=== PATIENT | female | born 1970 | race African-American/Black ===

== ENCOUNTER 2016-11-24 05:34 | Emergency (ER) | payer OTHER ==
[~2016-11-24] VITALS: Ht 185.4 cm; Wt 78.0 kg
[~2016-11-24 05:34] MED LIST: ALBUTEROL SULF8.5 GM IH; ANTIVERT25 MG PO; ASPIR-LOW81 MG PO; AUGMENTIN875 MG PO; BACLOFEN10 MG PO; BACTRIM,SEPT1 TABLET PO; BENTYL10 MG PO; FLEXERIL10 MG PO; HYDROCODON-ACE1 EAC7 PO; KEFLEX500 MG PO; LISINOPRIL-HCT1 EAC3 PO; LORTAB 5-325 M1 EACH PO; MOTRIN800 MG PO; NAPROSYN500 MG PO; OMEPRAZOLE40 M1 PO; PERCOCET 5/31 TABLET PO; PREDNISONE10 MG PO; PROAIR HFA8.5 GM IH; SKELAXIN400 M1 PO; ULTRAM50 MG PO; VENTOLIN HFA18 GM IH; VICODIN 5-5001 EACH PO; ZITHROMAX Z-PA250 MG PO
[2016-11-24] MEDS ORDERED: ATARAX,VISTARIL25 MG PO (05:48)
[2016-11-24 07:46] LABS: HEMATOCRIT 40.2 % (36.0-46.0); MCH 30.6 PG (29.0-34.0); MCHC 34.1 G/DL (30.0-36.0); MCV 89.7 FL (83-99); MEAN PLAT.VOLUME 11.6 uM^3 (9.5-12.4); PLATELET COUNT 189 K/uL (156-360); RBC DIS.WIDTH-SD 48.2 % (39-53); RED BLOOD COUNT 4.48 M/uL (3.80-5.20); WHITE BLOOD COUNT 8.5 K/uL (4.1-10.2)
[2016-11-24 08:16] LABS: ANION GAP 11 MEQ/L (2-14); CHLORIDE 106 MEQ/L (99-109); POTASSIUM 3.7 MEQ/L (3.7-5.4); SAMPLE HEMOLYSIS CHECK 0; SAMPLE ICTERIC CHECK 0; SAMPLE LIPEMIA CHECK 0; SODIUM 140 MEQ/L (136-147)
[2016-11-24 08:21] LABS: GFR ESTIMATE (CALCULATED) > 59 mL/min/; GLUCOSE 90 mg/dL (70-99); SERUM ETHYL ALCOHOL 139 mg/dL; UREA NITROGEN (BUN) 6 mg/dL (9-23)
[2016-11-24 09:31] VITALS: BP 142/86
== END 2016-11-24 09:15 | disposition short-term general hospital (02) ==
LOC: TRA 05:34 → EME 05:34 → TRA 09:15
PROVIDERS: Emergency Medicine
DX: S02.2XXA Fracture of nasal bones, initial encounter for closed fracture (principal); S02.40DA Maxillary fracture, left side, initial encounter for closed fracture; S02.82XA Fracture of other specified skull and facial bones, left side, initial encounter for closed fracture; S02.32XA Fracture of orbital floor, left side, initial encounter for closed fracture; Y04.8XXA Assault by other bodily force, initial encounter; Y07.03 Male partner, perpetrator of maltreatment and neglect; I10 Essential (primary) hypertension; F17.200 Nicotine dependence, unspecified, uncomplicated
CPT/HCPCS: 70450; 70486; 80048; 85027; 99281; 99285; G0480; J0690; J1580; J1885; J2270; J7050

== ENCOUNTER 2017-12-03 16:47 | Emergency (ER) | payer OTHER ==
[~2017-12-03] VITALS: Ht 188 cm; Wt 81.8 kg
[~2017-12-03 16:47] MED LIST changes: +ATARAX,VISTARIL25 MG PO
[2017-12-03] MEDS ORDERED: BACTRIM,SEPT1 TABLET PO (19:06)
[2017-12-03] MEDS ORDERED: KEFLEX500 MG PO (19:06)
[2017-12-03 19:27] VITALS: BP 145/88
== END 2017-12-03 19:28 | disposition home or self-care (01) ==
LOC: EME 16:47
PROC: 0H96XZZ Drainage of Back Skin, External Approach (ICD-10-PCS; principal; 2017-12-03)
DX: L72.3 Sebaceous cyst (principal); L08.9 Local infection of the skin and subcutaneous tissue, unspecified
CPT/HCPCS: 87070; 87075; 87076; 87185; 87205; 99281; 99284